=== PATIENT | female | born 1945 | race Caucasian/White ===

== ENCOUNTER → 2017-10-13 | Outpatient (CLI) | payer MEDICARE, OTHER ==
[2014-09-08 14:35] VITALS: BMI 30.7
[~2017-10-13] MED LIST: ACET500T68 PO; ADV250/50 INH; ALB18R INH; AML5 PO; ASPI81TA94 PO; ATR10 PO; CET10 PO; CHOL200074 PO; ERGO500037 PO; FLUT16SP20 NS; FOLI-68 PO; HCTZ25 PO; INSU100C14 SQ; INSU100V24 SQ; LIS20 PO; MON10 PO; MULT-865 PO; NAPR220C12 PO; ONDA4TAB PO; PER PO
[2017-10-13 07:38] LABS: LDL CHOLESTEROL 68 mg/dl
== END ==
LOC: LAB 06:37
PROVIDERS: ATTEND Internal Medicine Endocrinology, Diabetes & Metabolism
DX: E10.9 Type 1 diabetes mellitus without complications (principal); Z96.41 Presence of insulin pump (external) (internal)
CPT/HCPCS: 36415; 82040; 82043; 82247; 82310; 82374; 82435; 82465; 82565; 82947; 83036; 83718; 84075; 84132; 84155; 84295; 84450; 84460; 84478; 84520

== ENCOUNTER → 2017-10-26 | Outpatient (CLI) | payer MEDICARE, OTHER ==
[2014-09-08 14:35] VITALS: BMI 30.7
--- NOTE | 2017-10-28 09:31 | RADIOLOGY IMAGING REPORT ---
FACILITY: [facility] - [place] PATIENT NAME: FRANCISCO J SALAS : [id number] MR: [id number] V: [id number] EXAM DATE: [id number] ORDERING PHYSICIAN: GURJIT GENTILE TECHNOLOGIST: Beronica Nunes PROCEDURE:BILATERAL DIGITAL SCREENING MAMMOGRAM WITH CAD AND 3D BREAST TOMOSYNTHESIS. COMPARISON:10/24/16 and priors back to 10/15/11. INDICATIONS:SCREENING FINDINGS: Breast parenchyma is predominantly fatty density. There are no mammographic findings concerning for malignancy. No significant interval change. DIAGNOSTIC CATEGORY 1--NEGATIVE. RECOMMENDATIONS: ROUTINE MAMMOGRAM AND CLINICAL EVALUATION. IMPRESSION: Bi-RADS 1: Negative. RECOMMENDATION: Followup screening mammogram in one year. Dictated by: Shyam Joseph on 10/26/2017 at 13:23 Transcribed by: DASHAWN on 10/26/2017 at 23:12 Approved by: Genesis Goldman M.D. on 10/28/2017 at 8:55 [facility]
== END ==
LOC: MAMO 02:00
PROVIDERS: ATTEND Emergency Medicine
DX: Z12.31 Encounter for screening mammogram for malignant neoplasm of breast (principal)
CPT/HCPCS: 77063; 77067

== ENCOUNTER 2017-12-21 08:49 | Outpatient (RCR) | payer MEDICARE, OTHER ==
[2014-09-08 14:35] VITALS: Wt 72.8 kg
[2017-12-08 08:54] VITALS: BP 131/75
[2017-12-08 09:13] LABS: PLATELET COUNT, AUTOMATED 253 K/uL (150-450)
[2017-12-21 08:55] VITALS: BP 139/77
--- NOTE | 2017-12-22 16:40 | ONCOLOGY FOLLOW UP NOTE ---
EVENT DATE: December 21, 2017 CHIEF COMPLAINT/REASON FOR VISIT Ms. Hawkins is a pleasant 72-year-old female with a history of stage II colon cancer as well as macrocytosis here for followup. HISTORY OF PRESENT ILLNESS Ms. Hawkins returns. She was discharged in July 2014 with a stage II colon cancer that was well differentiated. She had a right hemicolectomy as well as an appendectomy on September 10, 2014. On final pathology it was moderately differentiated. It was not T4. All margins were negative. Eight lymph nodes were removed and all were negative for cancer. Microsatellite instability was high. She did not receive adjuvant chemotherapy despite the slightly suboptimal lymph node dissection with only eight lymph nodes. She otherwise had an appropriate surgery and it is possible that her lymph nodes were underestimated, given the extent of tissue removed. She is now over three years without any evidence of disease and her CEA remains excellent. She overall feels quite well. She had some recent benign skin lesions removed that are healing well. She has no other complaints today. No weight loss, red flag symptoms of any concern. PAST MEDICAL HISTORY 1. Stage II colon cancer. 2. Diabetes. 3. Hypercholesterolemia. 4. Hypertension. 5. Asthma. 6. Cataracts. MEDICATIONS 1. Vitamin D. 2. Folic acid. 3. Aleve as needed. 4. Tylenol as needed. 5. Aspirin 81 mg daily. 6. Multivitamin. 7. Albuterol as needed. 8. Insulin. 9. Advair. 10. Flonase as needed. 11. Singulair as needed. 12. Zyrtec a needed. 13. Hydrochlorothiazide 25 mg daily. 14. Atorvastatin 10 mg daily. 15. Amlodipine 5 mg daily. 16. Lisinopril 20 mg daily. SOCIAL HISTORY The patient is . Her passed way in 2016. She has two children and at least four grandchildren. Her youngest son lives in [place]. She recently has a new puppy, a male yellow lab named Jordan. FAMILY HISTORY Unremarkable. REVIEW OF SYSTEMS CONSTITUTIONAL: No fevers, chills or weight change. HEENT: No headache or vision changes. CARDIOVASCULAR: No chest pain, dyspnea on exertion or edema. RESPIRATORY: No shortness of breath, wheeze or cough. GASTROINTESTINAL: No nausea, vomiting. GENITOURINARY: No dysuria or hematuria. MUSCULOSKELETAL: No weakness or joint pain. PSYCHIATRIC: No anxiety or depression. ENDOCRINE: No heat or cold intolerance. SKIN: No concerning new rashes or lesions. She did have some recent benign lesions removed. LYMPHATICS: No concerning lumps or bumps. The remainder of the 14-point review of systems otherwise negative. PHYSICAL EXAMINATION VITAL SIGNS: Blood pressure 139/77, pulse 85, respiratory rate 16, temperature 97.2 degrees F., oxygen saturation 92% on room air. Weight 72.8 kg. Pain 0/ 10. Fatigue 0/10. GENERAL: Stable condition, resting comfortably in the chair. HEENT: Normocephalic, atraumatic. ABDOMEN: Soft, nontender, nondistended. No masses or organomegaly. Her insulin pump looks well. EXTREMITIES: No clubbing, cyanosis or edema. The remainder of the physical exam otherwise unremarkable. IMPRESSION/REPORT/PLAN Ms. Hawkins is a very pleasant patient who presents with the followin. Stage II colon cancer. 2. Benign skin lesions removed. I answered all of her questions today. She has no evidence of disease and would like to check her labs every six months. We will get scans only as needed. Her likelihood of cure is extremely high at this point. PRICE
== END 2018-01-01 14:22 | disposition home or self-care (01) ==
LOC: ONC 08:49
PROVIDERS: ATTEND Internal Medicine
DX: C18.7 Malignant neoplasm of sigmoid colon (principal); M81.0 Age-related osteoporosis without current pathological fracture; D75.89 Other specified diseases of blood and blood-forming organs
CPT/HCPCS: 36415; 82306; 82378; 85025; G0463; 82040; 82247; 82310; 82374; 82435; 82565; 82947; 84075; 84132; 84155; 84295; 84450; 84460; 84520; 99212

== ENCOUNTER → 2018-01-12 | Outpatient (CLI) | payer MEDICARE, OTHER ==
[2014-09-08 14:35] VITALS: BMI 30.7
== END ==
LOC: LAB 07:58
PROVIDERS: ATTEND Internal Medicine Endocrinology, Diabetes & Metabolism
DX: E10.9 Type 1 diabetes mellitus without complications (principal)
CPT/HCPCS: 36415; 83036

== ENCOUNTER 2018-05-24 08:14 | Emergency (ER) | payer MEDICARE, OTHER ==
[2014-09-08 14:35] VITALS: Wt 71.2 kg
[~2018-05-24 08:14] MED LIST changes: +AMLO-96 PO; +ATOR20TA65 PO; +CHOL10005 PO; +DIPH0.5D12 IM; +FLUT1DIS28 IH; +HYDR-2966 PO; +LISI-374 PO; +MONT10TA4 PO; +OXYGENHOME INH; +PNEI IJ; +SENN-187 PO
--- NOTE | 2018-05-24 08:18 | ER Report ---
History and Physical Time Seen By MD: 08:17 HPI/ROS CHIEF COMPLAINT: Dizziness HISTORY OF PRESENT ILLNESS: Patient is a 72-year-old female who presents with episodes of positional dizziness. The symptoms started Thursday. She states that she woke and had severe vertigo when sitting up in bed. She attempts to crawl out of bed and may have "blacked out" and struck her back. Patient may have had one other syncopal episode over the weekend. Today she states that the symptoms are quite minimal and again related to position. She denies any headache at this time. She denies headache at the onset. Further she denies any chest pain or shortness of breath. He does have chronic reactive airways disease mild persistent asthma and wears oxygen at night. She states no nausea vomiting or diarrhea. She denies any infectious symptoms such as fevers chills. She does state she has her chronic rhinitis symptoms. She denies any traumatic injury prior to the onset of the symptoms. REVIEW OF SYSTEMS: Constitutional: No fever, no chills. Eyes: No discharge. No Double vision ENT: No sore throat. Cardiovascular: No chest pain, no palpitations. Respiratory: No cough, no shortness of breath. Gastrointestinal: No abdominal pain, no vomiting. Genitourinary: No hematuria. Musculoskeletal: No back pain. Skin: No rashes. Neurological: No headache. Positional vertigo Allergies: Coded Allergies: strawberry (Verified Allergy, Mild, 05/24/18) Uncoded Allergies: HAYFEVER (Allergy, Intermediate, SINUS CONGESTION, 04/18/15) Home Meds Active Scripts Meclizine Hcl (MECLIZINE HCL) 25 Mg Tablet, 25 MG PO Q8H for dizziness, #20 TAB 0 Refills Prov:BHAVESH MOLINA MD 05/24/18 Albuterol Sulfate (VENTOLIN HFA) 18 Gm Inh, 1-2 PUFF INH 3-4XD Y for WHEEZING, # 1 INH 3 Refills Prov:GURJIT GENTILE MD 01/21/18 Fluticasone/Salmeterol (ADVAIR 250-50 DISKUS) 1 Each Disk.w.dev, 1 EACH IH BID, #3 INHALER 3 Refills Prov:GURJIT GENTILE MD 01/21/18 Montelukast Sodium (MONTELUKAST SODIUM) 10 Mg Tablet, 1 TAB PO QDAY, #90 TAB 3 Refills Prov:GURJIT GENTILE MD 01/21/18 Hydrochlorothiazide (HYDROCHLOROTHIAZIDE) 25 Mg Tablet, 1 TAB PO QDAY, #90 TAB 3 Refills Prov:GURJIT GENTILE MD 01/21/18 Amlodipine Besylate (AMLODIPINE BESYLATE) 5 Mg Tablet, 1 TAB PO QDAY, #90 TAB 3 Refills Prov:GURJIT GENTILE MD 01/21/18 Atorvastatin Calcium (ATORVASTATIN CALCIUM) 20 Mg Tablet, 1 TAB PO QDAY, #90 TAB 3 Refills Prov:GURJIT GENTILE MD 01/21/18 Lisinopril (LISINOPRIL) 40 Mg Tablet, 40 MG PO QDAY, #90 TAB 3 Refills Prov:GURJIT GENTILE MD 01/21/18 Folic Acid (FOLIC ACID) 1 Mg Tablet, 1 MG PO QDAY, #90 TAB Prov:AUDIE MAYA FIBER ANALYST-BC, ONC 06/12/17 Reported Medications Oxygen (OXYGEN) Inha, 2 L INH QHS, L 02/24/18 Sennosides/Docusate Sodium (STOOL SOFTENER TABLET) 1 Each Tablet, 1 EACH PO QDAY 01/21/18 Cholecalciferol (Vitamin D3) (VITAMIN D3) 1,000 Unit Tablet, 1000 UNIT PO QDAY, TAB 01/21/18 Aspirin (ASPIRIN) 81 Mg Tab.chew, 81 MG PO QDAY, TAB.CHEW TAKE 1 TABLET BY MOUTH EVERY DAY 08/09/14 Multivitamin (DAILY MULTIPLE VITAMIN) 1 Each Tablet, 1 EACH PO 08/09/14 Insulin Aspart (NOVOLOG) 100 Unit/1 Ml Cartridge, 100 UNIT SQ INSULIN PUMP WITH BASAL RATE SET AT 1.10 UNITS, CHANGES AT NOON, AND AT 1800. 07/18/14 Fluticasone Propionate (Flonase) 16 Gm [place], 1 APOLINAR NS BID Y for PRN, 0 Refills 08/14/08 Cetirizine Hcl (Zyrtec) 10 Mg Tab, 10 MG PO QDAY Y for PRN, 0 Refills 08/14/08 Past Medical/Surgical History The electronic medical record was reviewed. Patient has a history of allergic rhinitis, hyperlipidemia, hypertension, asthma, type II diabetes, history of colorectal cancer stage II diagnosed in September 2014, history of shingles, past surgical history for hysterectomy, appendectomy, right hemicolectomy. Hx Smoking: No Smoking Status: Never Smoker Exposure to Second Hand Smoke?: No Hx Substance Use Disorder: No Hx Alcohol Use: Yes Constitutional Vital Sign - Last 24 Hours 05/24/18 05/24/18 05/24/18 05/24/18 08:20 08:20 08:30 08:44 Temp 98.2 Pulse 79 78 Resp 20 16 B/P (MAP) 179/89 (119) 179/89 170/83 (112) Pulse Ox 98 94 O2 Delivery Room Air Physical Exam General/Constitutional: Patient is awake, alert, nontoxic and in no acute respiratory distress. Head: Normocephalic and atraumatic. Eyes: Conjunctival clear, Pupils are equal and reactive to light. Extraocular muscles are intact and symmetrical. Sclera are clear and anicteric. Ears:External canals are clear. Tympanic membranes are clear with normal landmarks and light reflex. Nares: No rhinorrhea or bleeding. Turbinates are pink and moist. Oropharyngeal: Mucous membranes are moist. There is no pharyngeal erythema or exudate. There are no palatal petechiae. Uvula is midline and symmetrical. Neck: Supple, no adenopathy. Cardiovascular: Heart is regular rate and rhythm without audible murmurs, rubs or gallops. Pulmonary: Lungs are clear to auscultation bilaterally. There are no wheezes, rales, or rhonchi. Chest rise is symmetrical Abdomen: Soft, nontender, no guarding or peritoneal signs. Extremities: No gross deformities, No peripheral cyanosis. Able to move all 4 extremities. Neuro: Alert and oriented X3, Cranial nerves 2 thru 12 are intact and symmetrical. Normal [id number] bilaterally Skin: No rashes, skin is warm dry and well perfused. Medical Decision Making Data Points Result Diagram: 05/24/18 0835 05/24/18 0835 Laboratory Hematology Test 05/24/18 08:35 05/24/18 09:55 Red Blood Count 4.49 M/uL (4.17-5.56) Mean Corpuscular Volume 94.9 fL (80.0-96.0) Mean Corpuscular Hemoglobin 33.5 pg (26.0-33.0) Mean Corpuscular Hemoglobin Concent 35.3 g/dL (32.0-36.0) Red Cell Distribution Width 13.8 % (11.5-14.5) Mean Platelet Volume 8.2 fL (7.2-11.1) Neutrophils (%) (Auto) 80.3 % (39.4-72.5) Lymphocytes (%) (Auto) 11.7 % (17.6-49.6) Monocytes (%) (Auto) 6.3 % (4.1-12.4) Eosinophils (%) (Auto) 1.2 % (0.4-6.7) Basophils (%) (Auto) 0.5 % (0.3-1.4) Nucleated RBC Relative Count (auto) 0.0 /100WBC Neutrophils # (Auto) 4.9 K/uL (2.0-7.4) Lymphocytes # (Auto) 0.7 K/uL (1.3-3.6) Monocytes # (Auto) 0.4 K/uL (0.3-1.0) Eosinophils # (Auto) 0.1 K/uL (0.0-0.5) Basophils # (Auto) 0.0 K/uL (0.0-0.1) Nucleated RBC Absolute Count (auto) 0.00 K/uL Sodium Level 134 mmol/L (137-145) Potassium Level 4.0 mmol/L (3.5-5.0) Chloride Level 100 mmol/L (98-107) Carbon Dioxide Level 22 mmol/L (22-31) Blood Urea Nitrogen 17 mg/dl (7-18) Creatinine 0.80 mg/dl (0.52-1.04) Glomerular Filtration Rate Calc > 60.0 Random Glucose 277 mg/dl (75-110) Calcium Level 9.2 mg/dl (8.4-10.2) Total Bilirubin 0.8 mg/dl (0.2-1.3) Aspartate Amino Transf (AST/SGOT) 27 U/L (0-35) Alanine Aminotransferase (ALT/SGPT) 37 U/L (0-56) Alkaline Phosphatase 70 U/L (0-126) Troponin I < 0.012 ng/ml Total Protein 7.6 g/dl (6.3-8.2) Albumin 4.4 g/dl (3.5-5.0) Urine Color Straw Urine Clarity Clear Urine pH 6.0 pH (4.8-9.5) Urine Specific Convoy 1.005 Urine Protein Negative mg/dL (NEGATIVE) Urine Glucose (UA) 500 mg/dL (NEGATIVE) Urine Ketones 20 mg/dL (NEGATIVE) Urine Blood Negative (NEGATIVE) Urine Nitrite Negative (NEGATIVE) Urine Bilirubin Negative (NEGATIVE) Urine Urobilinogen Negative mg/dL (0.2-1.9) Urine Leukocyte Esterase Negative (NEGATIVE) Urine RBC <1 /HPF (0-2/HPF) Urine WBC <1 /HPF (0-5/HPF) Urine Squamous Epithelial Cells Many /LPF (</=FEW) Urine Transitional Epithelial Cells Few /LPF (NONE-FEW) Urine Bacteria Negative /HPF (NONE-FEW) Urine Mucus None /HPF (NONE-FEW) Chemistry Test 05/24/18 08:35 05/24/18 09:55 White Blood Count 6.1 k/uL (4.5-11.0) Red Blood Count 4.49 M/uL (4.17-5.56) Hemoglobin 15.0 g/dL (12.0-16.0) Hematocrit 42.6 % (34.0-47.0) Mean Corpuscular Volume 94.9 fL (80.0-96.0) Mean Corpuscular Hemoglobin 33.5 pg (26.0-33.0) Mean Corpuscular Hemoglobin Concent 35.3 g/dL (32.0-36.0) Red Cell Distribution Width 13.8 % (11.5-14.5) Platelet Count 334 K/uL (150-450) Mean Platelet Volume 8.2 fL (7.2-11.1) Neutrophils (%) (Auto) 80.3 % (39.4-72.5) Lymphocytes (%) (Auto) 11.7 % (17.6-49.6) Monocytes (%) (Auto) 6.3 % (4.1-12.4) Eosinophils (%) (Auto) 1.2 % (0.4-6.7) Basophils (%) (Auto) 0.5 % (0.3-1.4) Nucleated RBC Relative Count (auto) 0.0 /100WBC Neutrophils # (Auto) 4.9 K/uL (2.0-7.4) Lymphocytes # (Auto) 0.7 K/uL (1.3-3.6) Monocytes # (Auto) 0.4 K/uL (0.3-1.0) Eosinophils # (Auto) 0.1 K/uL (0.0-0.5) Basophils # (Auto) 0.0 K/uL (0.0-0.1) Nucleated RBC Absolute Count (auto) 0.00 K/uL Glomerular Filtration Rate Calc > 60.0 Calcium Level 9.2 mg/dl (8.4-10.2) Total Bilirubin 0.8 mg/dl (0.2-1.3) Aspartate Amino Transf (AST/SGOT) 27 U/L (0-35) Alanine Aminotransferase (ALT/SGPT) 37 U/L (0-56) Alkaline Phosphatase 70 U/L (0-126) Troponin I < 0.012 ng/ml Total Protein 7.6 g/dl (6.3-8.2) Albumin 4.4 g/dl (3.5-5.0) Urine Color Straw Urine Clarity Clear Urine pH 6.0 pH (4.8-9.5) Urine Specific Convoy 1.005 Urine Protein Negative mg/dL (NEGATIVE) Urine Glucose (UA) 500 mg/dL (NEGATIVE) Urine Ketones 20 mg/dL (NEGATIVE) Urine Blood Negative (NEGATIVE) Urine Nitrite Negative (NEGATIVE) Urine Bilirubin Negative (NEGATIVE) Urine Urobilinogen Negative mg/dL (0.2-1.9) Urine Leukocyte Esterase Negative (NEGATIVE) Urine RBC <1 /HPF (0-2/HPF) Urine WBC <1 /HPF (0-5/HPF) Urine Squamous Epithelial Cells Many /LPF (</=FEW) Urine Transitional Epithelial Cells Few /LPF (NONE-FEW) Urine Bacteria Negative /HPF (NONE-FEW) Urine Mucus None /HPF (NONE-FEW) Urinalysis Test 05/24/18 09:55 Urine Color Straw Urine Clarity Clear Urine pH 6.0 pH (4.8-9.5) Urine Specific Convoy 1.005 Urine Protein Negative mg/dL (NEGATIVE) Urine Glucose (UA) 500 mg/dL (NEGATIVE) Urine Ketones 20 mg/dL (NEGATIVE) Urine Blood Negative (NEGATIVE) Urine Nitrite Negative (NEGATIVE) Urine Bilirubin Negative (NEGATIVE) Urine Urobilinogen Negative mg/dL (0.2-1.9) Urine Leukocyte Esterase Negative (NEGATIVE) Urine RBC <1 /HPF (0-2/HPF) Urine WBC <1 /HPF (0-5/HPF) Urine Squamous Epithelial Cells Many /LPF (</=FEW) Urine Transitional Epithelial Cells Few /LPF (NONE-FEW) Urine Bacteria Negative /HPF (NONE-FEW) Urine Mucus None /HPF (NONE-FEW) EKG/Imaging EKG Interpretation 05/24/2018 8:43:23 am EKG shows normal sinus rhythm with a ventricular rate of [address] segment or T-wave abnormalities noted. This EKG was compared to an EKG from 09/04/2014 no significant changes were noted Monitor Interpretation: Normal Sinus Rhythm Imaging FACILITY: [facility] - [place] PATIENT NAME: Camila Hawkins : 1945 MR: [id number] V: [id number] EXAM DATE: ORDERING PHYSICIAN: BHAVESH MOLINA TECHNOLOGIST: [place] [facility] [place] Patient: Camila Hawkins : 1945 Visit/Account:[id number] Date of Sevice: 05/24/2018 CHEST PA AND LAT COMPARISON: None. HISTORY: dizziness , asthma FINDINGS: CARDIAC/VASC: No cardiac silhouette abnormality or cardiomegaly. Unremarkable pulmonary vasculature. MEDIASTINUM: No visible mass or adenopathy. LUNGS/PLEURA: No pneumothorax. No consolidation or edema. Small linear opacity in the left lateral costophrenic angle could represent minor atelectasis or scarring. Lung volumes are upper normal. There is no effusion. BONES: No fracture or visible bony lesion. Mild thoracic spine degenerative change and lower thoracic spine levoscoliosis. OTHER:Negative. IMPRESSION: Minor atelectasis or scarring in the left lung base laterally. Otherwise negative chest. Report Dictated By: Guerrero Mcmahon at 05/24/2018 9:17 AM Report E-Signed By: Guerrero Mcmahon at 05/24/2018 9:18 AM WSN:[id number] 05/24/2018 10:43:[address] scan of the head without contrast which was read by Al[facility] radiology revealed no acute findings. ED Course/Re-evaluation Clinical Indication for ER IV: IV Access ED Course 05/24/2018 8:58:28 am After history and physical exam was performed differential diagnosis was formulated which includes but is not limited to benign positional vertigo, less likely central vertigo, less likely acute coronary syndrome, less likely dehydration less likely labyrinthitis. Plan at this time will be workup to include a single troponin, we will perform a noncontrast CT of the head. We will give oral meclizine at this time. Decision to Disposition Date: May 24, 2018 Decision to Disposition Time: 10:43 Depart Departure Latest Vital Signs Vital Signs Date Time Temp Pulse Resp B/P (MAP) Pulse Ox O2 Delivery O2 Flow Rate FiO2 05/24/18 08:44 78 16 94 05/24/18 08:30 170/83 (112) 05/24/18 08:20 98.2 Room Air Impression: Primary Impression: Benign positional vertigo Condition: Improved Disposition: HOME OR SELF-CARE Referrals: GURJIT GENTILE MD (PCP) 2 Days if symptoms persist New Scripts Meclizine Hcl (MECLIZINE HCL) 25 Mg Tablet 25 MG PO Q8H for dizziness, #20 TAB 0 Refills Prov: BHAVESH MOLINA MD 05/24/18 Patient Instructions: Benign Paroxysmal Positional Vertigo (ED) Problem Qualifiers Primary Impression: Benign positional vertigo Laterality: unspecified laterality Qualified Codes: H81.10 - Benign paroxysmal vertigo, unspecified ear BHAVESH MOLINA MD May 24, 2018 08:18
[2018-05-24] MEDS ORDERED: MECLIZINE HCL 25 MG TAB PO ONE (08:55)
--- NOTE | 2018-05-24 08:57 | EKG ---
FACILITY: [facility] - [place] PATIENT NAME: FRANCISCO J SALAS : [id number] MR: [id number] V: [id number] EXAM DATE: ORDERING PHYSICIAN: BHAVESH MOLINA TECHNOLOGIST: CRISTIAN Ayala Reason : Blood Pressure : / mmHG Vent. Rate : 071 BPM Atrial Rate : 071 BPM P-R Int : 172 ms QRS Dur : 080 ms QT Int : 406 ms P-R-T Axes : 073 028 060 degrees QTc Int : 441 ms Normal sinus rhythm Normal ECG When compared with ECG of 04-SEP-2014 07:01, No significant change was found Confirmed by Delano Garcia ([id number]) on 05/24/2018 5:24:47 PM Referred By: Confirmed By:Delano Durham
[2018-05-24 09:09] LABS: PLATELET COUNT, AUTOMATED 334 K/uL (150-450)
--- NOTE | 2018-05-24 09:22 | RADIOLOGY IMAGING REPORT ---
FACILITY: [facility] PATIENT NAME: Camila Hawkins : 1945 MR: [id number] V: [id number] EXAM DATE: ORDERING PHYSICIAN: BHAVESH MOLINA TECHNOLOGIST: Location: [facility] - [place] Patient: Camila Hawkins : 1945 Visit/Account:[id number] Date of Sevice: 05/24/2018 CHEST PA AND LAT COMPARISON: None. HISTORY: dizziness , asthma FINDINGS: CARDIAC/VASC: No cardiac silhouette abnormality or cardiomegaly. Unremarkable pulmonary vasculatu re. MEDIASTINUM: No visible mass or adenopathy. LUNGS/PLEURA: No pneumothorax. No consolidation or edema. Small linear opacity in the left lateral c ostophrenic angle could represent minor atelectasis or scarring. Lung volumes are upper normal. There is no effusion. BONES: No fracture or visible bony lesion. Mild thoracic spine degenerative change and lower thor acic spine levoscoliosis. OTHER:Negative. IMPRESSION: Minor atelectasis or scarring in the left lung base laterally. Otherwise negative chest. Report Dictated By: Guerrero Mcmahon at 05/24/2018 9:17 AM Report E-Signed By: Guerrero Mcmahon at 05/24/2018 9:18 AM WSN:[id number]
[2018-05-24] MEDS ORDERED: MECL25TA9 PO (10:04)
[2018-05-24 10:30] VITALS: BP 150/79
--- NOTE | 2018-05-24 10:30 | RADIOLOGY IMAGING REPORT ---
FACILITY: [facility] - [place] PATIENT NAME: Camila Hawkins : 1945 MR: [id number] V: [id number] EXAM DATE: ORDERING PHYSICIAN: BHAVESH MOLINA TECHNOLOGIST: Location: [facility] - [place] Patient: Camila Hawkins : 1945 Visit/Account:[id number] Date of Sevice: 05/24/2018 EXAMINATION: CT Head without intravenous contrast HISTORY: Dizziness. TECHNIQUE: Axial images were obtained from the skull base to the vertex without intravenous contrast . Sagittal and coronal reformatted images are also submitted. One of the following dose optimization techniques was utilized in the performance of this exam: Autom ated exposure control; adjustment of the mA and/or kV according to the patient's size; or use of an i terative reconstruction technique. Specific details can be referenced in the facility's radiology C T exam operational policy. COMPARISON: None available. FINDINGS: Brain volume: Normal. Ventricles: Negative. Acute ischemic changes: None. Hemorrhage: None. Masses / edema: None. Littlejohn-white: Negative. White matter: Negative. Vessels: Mild carotid siphon calcification. Normal density in the dural venous sinuses. Extra-axial: Negative. Calvarium / skull base: Mild frontal hyperostosis. Otherwise negative. Visualized sinuses / orbits: Leftward nasal septal deviation. Mild mucosal thickening in the paranas al sinuses. IMPRESSION: No acute intracranial abnormality. Report Dictated By: Nestor Galeano MD at 05/24/2018 10:22 AM Report E-Signed By: Nestor Galeano MD at 05/24/2018 10:27 AM WSN:[id number]
== END 2018-05-24 10:50 | disposition home or self-care (01) ==
LOC: ER 08:23
DX: H81.10 Benign paroxysmal vertigo, unspecified ear (principal)
CPT/HCPCS: 70450; 71046; 81001; 84484; 85025; 93005; 99285; J8597; 82040; 82247; 82310; 82374; 82435; 82565; 82947; 84075; 84132; 84155; 84295; 84450; 84460; 84520

== ENCOUNTER 2018-06-14 07:47 | Outpatient (RCR) | payer MEDICARE, OTHER ==
[2014-09-08 14:35] VITALS: Wt 72.4 kg
[2018-06-11 08:57] VITALS: BP 130/60
[2018-06-11 09:32] LABS: PLATELET COUNT, AUTOMATED 273 K/uL (150-450)
[~2018-06-14 07:47] MED LIST changes: +AMLO-111 PO; -AMLO-96 PO; +MECL25TA9 PO
[2018-06-14 08:07] VITALS: BP 150/76
--- NOTE | 2018-06-15 14:27 | [facility] ONCOLOGY NOTE ---
EVENT DATE: June 14, 2018 CHIEF COMPLAINT/REASON FOR VISIT Ms. Hawkins is a pleasant 73-year-old female with a history of stage II colon cancer as well as macrocytosis, here for followup. HISTORY OF PRESENT ILLNESS Ms. Hawkins returns. She was discharged in July 2014 with a stage II colon cancer that was well differentiated. She then had a right hemicolectomy with appendectomy on September 10, 2014. On the final pathology, it was moderately differentiated. It was not a T4, and all margins were negative. Eight lymph nodes were removed, and all were negative for cancer. Microsatellite instability was high. She did not receive adjuvant chemotherapy despite the slightly suboptimal lymph node dissection with only eight lymph nodes. She otherwise had an appropriate surgery, and it is possible that the number of lymph nodes was underestimated given the large amount of tissue that was removed when reviewing the operative report. She is now nearly four years without any evidence of disease, and her CEA remains normal. She overall feels quite well. She is currently struggling with BPPV, and her vertigo is improving with Mik maneuvers. If this does not improve further, she could see Occupational Therapy to help her with these maneuvers. No other complaints today. No weight loss, concerning lumps or bumps, red flag symptoms of any kind. PAST MEDICAL HISTORY 1. Stage II colon cancer. 2. Diabetes. 3. Hypercholesterolemia. 4. Hypertension. 5. Asthma. 6. Cataracts. SOCIAL HISTORY The patient is . Her passed way in 2015. She has two children and at least four grandchildren. Her youngest son lives in [place]. She recently has a new puppy, a male yellow lab named Jordan. FAMILY HISTORY Unremarkable. REVIEW OF SYSTEMS CONSTITUTIONAL: No fevers, chills, or weight change. HEENT: No headache or vision changes. CARDIOVASCULAR: No chest pain, dyspnea on exertion, or edema. RESPIRATORY: No shortness of breath, wheeze, or cough. GASTROINTESTINAL: No nausea, vomiting, diarrhea, or constipation. No nausea with the vertigo as well. NEUROLOGIC: She does have some benign paroxysmal positional vertigo and is improving with maneuvers. PSYCHIATRIC: No depression or anxiety. HEMATOLOGIC: No bleeding or bruising. SKIN: No concerning new rashes or lesions today. The remainder of 14-point review of systems otherwise negative. PHYSICAL EXAMINATION VITAL SIGNS: Blood pressure 150/76, pulse 80, respiratory rate 16, temperature 98.1 Fahrenheit, oxygen saturation 95% on room air. Weight 72.4 kg and stable. Pain zero/10. Fatigue zero/10. GENERAL: Stable condition, resting comfortably in the chair. HEENT: Normocephalic, atraumatic. CARDIOVASCULAR: Regular rate and rhythm. LUNGS: Clear to auscultation bilaterally. ABDOMEN: Soft, nontender, nondistended, obese. No organomegaly or masses. EXTREMITIES: No clubbing, cyanosis, or edema. PSYCHIATRIC: Normal mood and affect. The remainder of the physical exam otherwise unremarkable. IMPRESSION/REPORT/PLAN Ms. Hawkins is a pleasant, 73-year-old female with the followin. Stage II colon cancer, resected, without adjuvant chemotherapy. No evidence of disease. 2. Benign paroxysmal positional vertigo. She is improving this with Mik maneuvers and time. If it does not improve further, she could see Occupational Therapy. No other workup needed. 3. Her likelihood of cure is high, but would like to see her every six months until the five-year period. That would be through the fall of 2018. I answered all of her questions today. BILLING Return visit level 3. Total time 20 minutes, consulting time 15. MTDD
== END 2018-06-30 09:07 | disposition home or self-care (01) ==
LOC: ONC 07:47
PROVIDERS: ATTEND Internal Medicine
DX: Z85.038 Personal history of other malignant neoplasm of large intestine (principal); M81.0 Age-related osteoporosis without current pathological fracture; D75.89 Other specified diseases of blood and blood-forming organs; Z92.21 Personal history of antineoplastic chemotherapy
CPT/HCPCS: 36415; 82306; 82378; 85025; G0463; 82040; 82247; 82310; 82374; 82435; 82565; 82947; 84075; 84132; 84155; 84295; 84450; 84460; 84520; 99212

== ENCOUNTER → 2018-07-13 | Outpatient (CLI) | payer MEDICARE, OTHER ==
[2014-09-08 14:35] VITALS: BMI 30.7
[2018-07-13 07:57] LABS: PLATELET COUNT, AUTOMATED 283 K/uL (150-450)
[2018-07-13 08:26] LABS: LDL CHOLESTEROL 68 mg/dl
== END ==
LOC: LAB 07:33
PROVIDERS: ATTEND Emergency Medicine
DX: G62.9 Polyneuropathy, unspecified (principal); I10 Essential (primary) hypertension; E78.00 Pure hypercholesterolemia, unspecified; E11.9 Type 2 diabetes mellitus without complications
CPT/HCPCS: 36415; 82040; 82247; 82310; 82374; 82435; 82465; 82565; 82607; 82947; 83036; 83718; 84075; 84132; 84155; 84295; 84450; 84460; 84478; 84520; 85007; 85027

== ENCOUNTER → 2018-10-07 | Outpatient (CLI) | payer MEDICARE, OTHER ==
[2014-09-08 14:35] VITALS: BMI 30.7
[~2018-10-07] MED LIST changes: +ATOR40TA69 PO
[2018-10-07 07:37] LABS: LDL CHOLESTEROL 57 mg/dl
== END ==
LOC: LAB 06:42
PROVIDERS: ATTEND Internal Medicine Endocrinology, Diabetes & Metabolism
DX: E10.9 Type 1 diabetes mellitus without complications (principal)
CPT/HCPCS: 36415; 82040; 82043; 82247; 82310; 82374; 82435; 82465; 82565; 82947; 83036; 83718; 84075; 84132; 84155; 84295; 84450; 84460; 84478; 84520

== ENCOUNTER → 2018-10-29 | Outpatient (CLI) | payer MEDICARE, OTHER ==
[2014-09-08 14:35] VITALS: BMI 30.7
[~2018-10-29] MED LIST changes: -AMLO-111 PO; +AMLO-125 PO
== END ==
LOC: LAB 09:48
DX: E10.9 Type 1 diabetes mellitus without complications (principal); I10 Essential (primary) hypertension; R53.83 Other fatigue
CPT/HCPCS: 36415; 84443

== ENCOUNTER → 2018-11-01 | Outpatient (CLI) | payer MEDICARE, OTHER ==
[2014-09-08 14:35] VITALS: BMI 30.7
--- NOTE | 2018-11-02 11:16 | RADIOLOGY IMAGING REPORT ---
FACILITY: [facility] PATIENT NAME: FRANCISCO J SALAS : [id number] MR: [id number]: [id number] EXAM DATE: ORDERING PHYSICIAN: GURJIT GENTILE TECHNOLOGIST: Beronica Nunes PROCEDURE:BILATERAL DIGITAL SCREENING MAMMOGRAM WITH CAD ASSISTED INTERPRETATION & 3D TOMOSYNTHESIS COMPARISON:Prior mammograms 10/26/17, 10/24/16, 10/23/15, 10/20/14, 10/19/13, 10/18/12. INDICATIONS:SCREENING FINDINGS: The breasts are almost entirely fatty. The parenchymal pattern has remained stable allowing for difference in mammographic technique & patient positioning. DIAGNOSTIC CATEGORY 1--NEGATIVE. RECOMMENDATIONS: ROUTINE MAMMOGRAM AND CLINICAL EVALUATION. IMPRESSION: BIRADS 1: Negative. No significant abnormality is seen. Dictated by: Genesis Goldman M.D. on 11/01/2018 at 11:22 Transcribed by: CAMPOS on 11/01/2018 at 13:49 Approved by: Genesis Goldman M.D. on 11/02/2018 at 11:14 [facility]
== END ==
LOC: MAMO 01:14
PROVIDERS: ATTEND Emergency Medicine
DX: Z12.31 Encounter for screening mammogram for malignant neoplasm of breast (principal)
CPT/HCPCS: 77063; 77067

== ENCOUNTER 2018-12-06 12:53 | Outpatient (RCR) | payer MEDICARE, OTHER ==
[2014-09-08 14:35] VITALS: Wt 72.3 kg
[2018-11-29 08:54] VITALS: BP 130/64
[2018-11-29 09:09] LABS: PLATELET COUNT, AUTOMATED 294 K/uL (150-450)
[~2018-12-06 12:53] MED LIST changes: -DIPH0.5D12 IM; +DIPH0.5S2 IM
[2018-12-06 12:57] VITALS: BP 157/81
--- NOTE | 2018-12-07 05:32 | ONCOLOGY FOLLOW UP NOTE ---
EVENT DATE: December 06, 2018 CHIEF COMPLAINT/REASON FOR VISIT Ms. Hawkins is a very pleasant 73-year-old female with a history of stage II colon cancer over four years ago, as well as macrocytosis, here for followup. HISTORY OF PRESENT ILLNESS/INTERVAL HISTORY Ms. Hawkins returns. Overall she is feeling quite well. Her BPPV issues have resolved. No other complaints today. No weight loss, concerning lumps or bumps, or any red-flag symptoms. ONCOLOGY HISTORY She was diagnosed in July 2014 with a stage II colon cancer that was well differentiated. She had a right hemicolectomy with appendectomy on September 10, 2014. On final pathology, it was moderately differentiated. It was not a T4, and all margins were negative. Eight lymph nodes were removed, which were negative for cancer. Microsatellite instability was high. She did not receive adjuvant chemotherapy despite the slightly suboptimal lymph node dissection, with only eight lymph nodes. She otherwise had an appropriate surgery, and it was possible that the number of lymph nodes were estimated given the large amount of tissue that was reviewed and removed. She is now over four years out without any evidence of disease. Her CEA remains normal. PAST MEDICAL HISTORY 1. Stage II colon cancer. 2. Diabetes. 3. Hypercholesterolemia. 4. Hypertension. 5. Asthma. 6. Cataracts. SOCIAL HISTORY The patient is . Her in 2015. She has two children and at least four grandchildren. Her youngest son lives in [place]. She recently has a new puppy, a male yellow lab named Jordan. FAMILY HISTORY Unremarkable. REVIEW OF SYSTEMS CONSTITUTIONAL: No fevers, chills, or weight change. HEENT: No headache or vision changes. No dizziness. . CARDIOVASCULAR: No chest pain, dyspnea on exertion, or edema. RESPIRATORY: No shortness of breath, wheeze, or cough. GASTROINTESTINAL: No nausea, vomiting, or diarrhea. NEUROLOGIC: BPPV was diagnosed and is now resolved. PSYCHIATRIC: No anxiety or depression. HEMATOLOGIC: No bleeding or bruising. SKIN: No concerning rashes or lesions today. ENDOCRINE: No heat or cold intolerance. Remainder of 14-point review of systems otherwise negative. PHYSICAL EXAMINATION VITAL SIGNS: Blood pressure 157/81, pulse 80, respiratory rate 16, temperature 96.7 Fahrenheit, oxygen saturation 95% on room air. Weight 72.3 kg and stable. Pain zero/10. Fatigue zero/10. GENERAL: Stable condition, resting comfortably in the chair. HEENT: Normocephalic, atraumatic. CARDIOVASCULAR: Regular rate and rhythm. LUNGS: Clear. ABDOMEN: Soft, nontender, nondistended. No organomegaly or masses. EXTREMITIES: No clubbing, cyanosis, or edema. Remainder of the physical exam otherwise unremarkable. IMPRESSION/REPORT/PLAN Ms. Hawkins is a pleasant 73-year-old female with the followin. Stage II colon cancer, resected, without adjuvant chemotherapy. No evidence of disease. 2. Benign paroxysmal positional vertigo. Resolved. Her likelihood of cure is high, and would like to see her every six months until the five-year period. After that time, we will see her annually or can pass her back to her primary care provider, Dr. Cee. She had a normal mammogram this year, which was reviewed from one month ago. I answered all of her questions today. BILLING Return visit level 4. Total time 30 minutes, consulting time 20 minutes. PRICE
[2019-01-18] MEDS ORDERED: ATOR40TA69 PO (09:34)
[2019-01-18] MEDS ORDERED: AMLO-125 PO (09:34)
[2019-01-18] MEDS ORDERED: ALB18R INH (09:34)
[2019-01-18] MEDS ORDERED: HYDR-2966 PO (09:34)
[2019-01-18] MEDS ORDERED: MONT10TA4 PO (09:34)
[2019-01-18] MEDS ORDERED: FLUT15.88 (09:34)
[2019-01-18] MEDS ORDERED: LISI-374 PO (09:34)
[2019-01-18] MEDS ORDERED: FLUT1DIS28 IH (09:34)
== END 2019-01-26 09:03 | disposition home or self-care (01) ==
LOC: ONC 12:53
PROVIDERS: ATTEND Internal Medicine
DX: Z85.038 Personal history of other malignant neoplasm of large intestine (principal)
CPT/HCPCS: 36415; 82378; 85025; G0463; 82040; 82247; 82310; 82374; 82435; 82565; 82947; 84075; 84132; 84155; 84295; 84450; 84460; 84520; 99212